=== PATIENT | female | born 1965 | race Caucasian/White ===

== ENCOUNTER 2020-10-12 17:41 | Emergency (ER) | payer MEDICARE, MEDICAID, SELFPAY ==
--- NOTE | ~2020-10-12 | XR_ITS ---
EXAMINATION: XR ANKLE, LEFT CLINICAL INFORMATION: Rule out fracture COMPARISON: None TECHNIQUE: AP, lateral, and mortise views of the left ankle. FINDINGS: Soft tissue swelling about the ankle more so laterally. There is an obliquely aerated fracture through the distal fibula extending at the level of the ankle mortise. I do not appreciate any significant widening to the ankle mortise or to the interosseous space between the tibia and fibula. No additional fracture seen. XR/XR ankle LT 2V IMPRESSION: Obliquely oriented lateral fibular fracture minimally displaced.
[2020-10-12 17:54] VITALS: BP 165/87; PULSE 100; RESP 15; TEMP 37.9; BMI 31.8
[2020-10-12 17:59] VITALS: BP 113/72; PULSE 107; RESP 18; TEMP 36.6; O2SAT 94
--- NOTE | 2020-10-12 21:05 | ED.LOWEXIN ---
HPI - Extremity Injury (Lower) General Chief Complaint: Extremity Injury, Lower Stated Complaint: lt ankle pain/swelling - s/p fall Time Seen by Provider: 10/12/20 20:56 Source: patient Mode of arrival: wheelchair Limitations: no limitations History of Present Illness HPI Narrative: Patient comes to the ER c/o L ankle pain, Patient states that Earlier today, patient missed a step, sprained her ankle, and since then she has not been able to bear weight due to pain. Patient has not taking any medication for pain control. The lateral aspect of the ankle is swollen. Patient denies hitting her head, no loss of consciousness, not on any blood thinners Related Data Allergies Allergy/AdvReac Type Severity Reaction Status Date / Time No Known Allergies Allergy Verified 10/12/20 21:02 Review of Systems Review of Systems: Constitutional : No Weight loss, No Fever, No Chills, No Night Sweats, No Fatigue, No Malaise ENT/Mouth : No Hearing loss, No Ear Pain, No Nasal Congestion, No Sinus Pain, No Hoarseness, No sore throat, No Rhinorrhea, No Swallowing Difficulty Eyes: No Eye Pain, No Swelling, No Redness, No Foreign Body, No Discharge, No Vision Changes Cardiovascular : No Chest Pain, No SOB, No Dyspnea on Exertion, No Orthopnea, No Edema, No Palpitations Respiratory : No Cough, No Sputum, No Wheezing, No Smoke Exposure, No Dyspnea Gastrointestinal : No Nausea, No Vomiting, No Diarrhea, No Constipation, No abdominal Pain, No Hematochezia, No Melena Genitourinary : no irregular bleeding, No Dysuria, No Urinary Frequency, No Hematuria, No Urinary Incontinence, No Urgency, No Flank Pain, No Urinary Flow Changes, No Hesitancy Musculoskeletal : Complaining of left ankle pain Skin : No Skin Lesions, No rash Neuro : No Weakness, No Numbness, No Paresthesias, No Loss of Consciousness, No Dizziness, No Headache Psych : No Anxiety/Panic, No Depression, No SI/HI/AH/VH, No Social Issues, Heme/Lymph: No Bruising, No Bleeding,No Lymphadenopathy Endocrine : No Polyuria, No Polydipsia, No Temperature Intolerance PMFSH Past Medical History Medical History ETOH abuse Multiple sclerosis Social History Social History Advance Directives: No Advance Directives Information Provided: Yes Physical Exam Vital Signs: Vital Signs: Last Vital Signs Temp 97.8 F 10/12/20 17:59 Pulse 107 H 10/12/20 17:59 Resp 18 10/12/20 17:59 BP 113/72 10/12/20 17:59 Pulse Ox 94 10/12/20 17:59 Body Mass Index 31.8 Appearance: Alert. Oriented X3. No acute distress. Eyes: Pupils equal, round and reactive to light. ENT: Pharynx normal. Neck: Normal inspection. Neck supple. No lymph nodes noted. No crepitus CVS: Normal heart rate and rhythm. Pulses normal. Normal S1 and S2 Respiratory: No respiratory distress. Breath sounds normal. No Wheezing. No rales Abdomen: Soft and nontender. No rigidity. No distention. good BS x4 Skin: Skin warm and dry. Ecchymosis in lateral malleolus, pain to palpation over lateral malleolus, unable to bear weight Extremities: No lower extremity edema. No lower extremity edema. No Lacerations. No Rash Neuro: Oriented X 3. No motor deficit. No sensory deficit. Moving all extermities. No slurred speech. Course Course Course Narrative: I discussed with the patient that she does have a fibular fracture. Crutches are not an option for the patient, patient has multiple sclerosis and chronic weakness on the left-hand. She is willing to try off a. A posterior splint will be placed, patient instructed to follow-up with orthopedics at this time, reduction of the minimally displaced fibula is not indicate MDM - Extremity Injury (Lower) Imaging Data Left ankle x-ray: Radiologist's impression: FINDINGS: Soft tissue swelling about the ankle more so laterally. There is an obliquely aerated fracture through the distal fibula extending at the level of the ankle mortise. I do not appreciate any significant widening to the ankle mortise or to the interosseous space between the tibia and fibula. No additional fracture seen. XR/XR ankle LT 2V IMPRESSION: Obliquely oriented lateral fibular fracture minimally displaced.
--- NOTE | 2020-10-12 21:33 | PC.NURSE ---
assisted with patient onto bedpan, left ankle not splinted at the time. pt has good motor, color, temperature and pedal pulse on left. pt has abrasion to right knee, reports minor pain to right knee. able to support weight on right leg while lifting for bed nicholas. pt requested walker from to go home with. pt has a hx of MS.
--- NOTE | 2020-10-12 21:35 | PC.NURSE ---
Pt aaox4, resting on stretcher in NAD, breathing with ease on RA. Pt reports splint to L ankle has totally taken away the pain. Pt with +CMS to distal LLE. Pt denies all other complaints/concerns at this time. pt requesting DC. Pt stretcher in low locked position, rails raised. Family at bedside.
[2020-10-12 21:39] VITALS: BP 127/84; PULSE 99; RESP 18; TEMP 36.5; O2SAT 93
[2020-10-12] MEDS: Acetaminophen 325 MG TABLET 650 MG PO (21:49)
--- NOTE | 2020-10-12 22:08 | PC.NURSE ---
pt unable to support weight while using assist of walker. spoke with patient and encouraged her to stay for case management.
[2020-10-12 23:03] LABS: COVID-19 Test Negative (Negative); IDNOW Serial# 08D9AD1C
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
[2020-10-12 23:36] VITALS: BP 160/99; PULSE 92; RESP 20; O2SAT 94
[2020-10-12] MEDS: traZODone HCL 50 MG TABLET PO (23:54)
[2020-10-12] MEDS: Perphenazine 8 MG TABLET PO (23:54)
[2020-10-12] MEDS: ondansetron HCL 4 MG/2 ML VIAL IVPUSH (23:54)
[2020-10-13 06:11] VITALS: BP 127/79; PULSE 84; RESP 20; O2SAT 95
[2020-10-13] MEDS: Omeprazole 20 MG CAPSULE.DR PO (06:11)
[2020-10-13 07:38] VITALS: BP 130/84; PULSE 91; RESP 18; TEMP 37.4; O2SAT 94
--- NOTE | 2020-10-13 07:42 | PC.NURSE ---
REPORT TAKEN FROM JASON VELAZQUEZ. PATIENT RESTING ON STRETCHER. AWARE OF PLAN FOR PHYSICAL THERAPY EVAL THIS MORNING AND THEN STR PLACEMENT. PATIENT REPORTS TO RN THAT SHE FEELS SICK TO HER STOMACH . STATES SHE FEELS SHE NEEDS NICOTINE REPLACEMENT, ASKING FOR GUM, SMOKES 2 PACKS/DAY. MD AWARE. WILL MEDICATED WHEN ORDERED.
[2020-10-13] MEDS: Nicotine Polacrilex 2 MG GUM BUCCAL (07:50)
[2020-10-13] MEDS: Perphenazine 8 MG TABLET PO (08:06)
[2020-10-13] MEDS: FLUoxetine HCl 20 MG CAPSULE PO (08:06)
[2020-10-13] MEDS: Fluticasone/Vilanterol 200/25 BLST.W.DEV 1 PUFF INHALE (08:07)
[2020-10-13 09:22] VITALS: BP 130/84; PULSE 91; O2SAT 94
[2020-10-13 09:52] VITALS: BP 130/80; PULSE 79; RESP 18; TEMP 36.7; O2SAT 94
--- NOTE | 2020-10-13 10:06 | MHC.CM.PN ---
Addendum entered by Edita Mcclendon 10/13/20 13:54: MSG RECEIVED FROM [facility], THEY WOULD LIKE TRANSPORT SET UP FOR 1500 HOURS. Addendum entered by Edita Mcclendon 10/13/20 13:17: [facility] [place] WAS ABLE TO ACCEPT PT TODAY. PT WILL BE TRANSPORTED VIA [facility] Original Note: CM MET WITH PT, HER BROTHER AND [facility]YS[facility] THERAPIST WERE ALSO PRESENT. PER PHYSICAL THERAPIST, PT WOULD BE APPROPRIATE FOR ACUTE REHAB SINCE SHE WAS COMPLETELY INDEPENDENT PRIOR TO INJURY. PTS BROTHER ASKED ABOUT HOME CARE DUE TO COVID 19 CONCERNS HOWEVER AFTER FURTHER DISCUSSION HE INDICATED HE DID NOT BELIEVES THIS WOULD BE A GOOD PLAN. BOTH PT AND HER BROTHER/HCP ARE AGREEABLE TO ACUTE REHAB AND HAVE REQUESTED A REFERRAL TO [facility]. THEY WOULD LIKE TO SEND REFERRALS TO [facility]OTH [facility] AND [place] IF [facility] IS UNABLE TO OFFER A BED. REFERRAL HAS BEEN SENT. CURRENT DC PLAN IS ACUTE REHAB. [facility] IS PREFERRED FACILITY.
[2020-10-13 13:19] VITALS: BP 138/76; PULSE 82; RESP 18; O2SAT 94
--- NOTE | 2020-10-13 13:22 | PC.NURSE ---
Pt calm and cooperative. Plan for STR. Pt up to date on plan.
--- NOTE | 2020-10-13 14:00 | MHC.CM.PN ---
Pt will transfer to [facility] [place] today at 1500 hours via [facility]. Pt aware. pts brother, Willem ([phone]) notified via t/c. He reports he will bring pt some clothes prior to her departure from [facility]. He also confirms he will bring the pts MS injection med directly to [facility] as requested by facility.
--- NOTE | 2020-10-13 15:31 | PC.NURSE ---
Report given to nurse at [facility]. Pt sent by ambulance to that fecility for rehab.
== END 2020-10-13 15:32 | disposition skilled nursing facility (03) ==
PROVIDERS: Emergency Provider Emergency Medicine; PCP Family Medicine
DX: S93.402A Sprain of unspecified ligament of left ankle, initial encounter (principal); M25.572 Pain in left ankle and joints of left foot; M25.472 Effusion, left ankle; W10.9XXA Fall (on) (from) unspecified stairs and steps, initial encounter; Y93.9 Activity, unspecified; Y92.9 Unspecified place or not applicable; Y99.9 Unspecified external cause status; Z20.822 Contact with and (suspected) exposure to COVID-19
CPT/HCPCS: 29515; 36415; 73600; 87635; 96372; 96374; 97162; 99284; J2405

== ENCOUNTER 2020-10-26 08:03 | Outpatient (REF) | payer OTHER, MEDICAID, SELFPAY ==
--- NOTE | ~2020-10-26 | XR_ITS ---
EXAMINATION: XR ANKLE, LEFT CLINICAL INFORMATION: Pain. History lateral fibular fracture. Follow-up. COMPARISON: Left ankle radiographs 10/12/2020 TECHNIQUE: AP, lateral, and mortise views of the left ankle. FINDINGS: There is a known oblique fracture distal fibular with mild lateral displacement distal fracture fragment. There is borderline asymmetry of the ankle mortise, perhaps slightly wider on the medial side, not appreciated on prior study 10/12/2020. No new fracture or destructive process. The subtalar joint is unremarkable. XR/XR ankle LT min 3V IMPRESSION: Known oblique fracture distal left fibular. Borderline asymmetry ankle mortise, slightly wider medial side since prior exam 10/12/2020.
== END 2020-10-26 08:04 | disposition home or self-care (01) ==
LOC: HO.HOSX 08:03
PROVIDERS: Visit Provider Physician Assistant
DX: Z01.818 Encounter for other preprocedural examination (principal); S82.832A Other fracture of upper and lower end of left fibula, initial encounter for closed fracture; M25.572 Pain in left ankle and joints of left foot
CPT/HCPCS: 73610; 99202

== ENCOUNTER 2020-10-31 10:15 | Day surgery (SDC) | payer MEDICARE, MEDICAID, SELFPAY ==
--- NOTE | 2020-10-30 09:01 | HO.ANESPROP2 ---
Documented by User: Diane Faria 10/30/20 09:02 HPI - Anesthesia Eval Consult details Narrative: 54yo F for Left Ankle Fracture ORIF ? ETOH PMFSH Active Problems Active Problems: All Active Problems (Updated 10/26/20 @ 13:02 by Mary Arroyo PA-C) Fracture of distal end of left fibula (Acute) Past Medical History Medical History Asthma with COPD ETOH abuse Multiple sclerosis Seizure Smoker Surgical History Surgical History (Updated 10/31/20 @ 13:37 by Syeda Ponce) H/O brain tumor Social History Social History Smoking Status: Current every day smoker Packs Per Day: 1 Cigarettes Per Day: 20.0 Years Smoked: 10 Smoked in Last 30 Days: Yes Are you DNR?: No Advance Directives: No Advance Directives Information Provided: Yes Meds Allergies Allergy/AdvReac Type Severity Reaction Status Date / Time latex Allergy Rash Verified 10/31/20 10:28 nickel Allergy Rash Verified 10/31/20 10:28 phenytoin [From Dilantin] Allergy Rash Verified 10/31/20 10:28 Home Medications Medication Instructions Recorded Confirmed Last Taken Type albuterol sulfate [ProAir HFA] 2 puff INHALATION Q4H PRN 10/12/20 10/12/20 Unknown History budesonide-formoterol [Symbicort] 2 puff INHALATION BID 10/12/20 10/12/20 10/12/20 History fluoxetine 1 cap PO QAM 10/12/20 10/12/20 10/12/20 History glatiramer [Glatopa] 20 mg SUBCUT DAILY 10/12/20 10/12/20 10/31/20 History omeprazole 1 cap PO DAILY 10/12/20 10/12/20 10/31/20 History perphenazine 1 tab PO BID 10/12/20 10/12/20 10/31/20 History trazodone 1 tab PO BEDTIME 10/12/20 10/12/20 Unknown History enoxaparin TOPICAL 10/31/20 10/29/20 History Exam Exam Date and Time: October 30, 2020900 Assessment and Plan Assessment Anesthesia Assessment: Chart Reviewed Documented by User: Syeda Ponce 10/31/20 13:37 [facility] Past Medical History Medical History Asthma with COPD ETOH abuse Multiple sclerosis Seizure Smoker Family History Family history of problems with anesthesia: No Surgical History Surgical History (Updated 10/31/20 @ 13:37 by Syeda Ponce) H/O brain tumor History of Problems with Anesthesia: No Social History Social History Smoking Status: Current every day smoker Packs Per Day: 1 Cigarettes Per Day: 20.0 Years Smoked: 10 Smoked in Last 30 Days: Yes Are you DNR?: No Advance Directives: No Advance Directives Information Provided: Yes Meds Allergies Allergy/AdvReac Type Severity Reaction Status Date / Time latex Allergy Rash Verified 10/31/20 10:28 nickel Allergy Rash Verified 10/31/20 10:28 phenytoin [From Dilantin] Allergy Rash Verified 10/31/20 10:28 Home Medications Medication Instructions Recorded Confirmed Last Taken Type albuterol sulfate [ProAir HFA] 2 puff INHALATION Q4H PRN 10/12/20 10/12/20 Unknown History budesonide-formoterol [Symbicort] 2 puff INHALATION BID 10/12/20 10/12/20 10/12/20 History fluoxetine 1 cap PO QAM 10/12/20 10/12/20 10/12/20 History glatiramer [Glatopa] 20 mg SUBCUT DAILY 10/12/20 10/12/20 10/31/20 History omeprazole 1 cap PO DAILY 10/12/20 10/12/20 10/31/20 History perphenazine 1 tab PO BID 10/12/20 10/12/20 10/31/20 History trazodone 1 tab PO BEDTIME 10/12/20 10/12/20 Unknown History enoxaparin TOPICAL 10/31/20 10/29/20 History Exam Height,Weight and Vital Signs: Vital Signs Temp Pulse Resp BP Pulse Ox 10/31/20 10:53 97.3 F 68 16 107/65 96 Airway Mallampati Class: III TM Dist: >3cm Neck ROM: Full Heart: RRR Lungs: CTAB Assessment and Plan Assessment Anesthesia Assessment: Anesthesia Plan Discussed and Chart Reviewed Final Anesthetic Review NPO: Yes ASA Class: II Final Preanesthetic Review: No Changes in Pt Med Stat, Meds/Allgs Chart Reviewed, Consent Obtained/Reviewed and Anes Risks/Benef Reviewed Patient Risk: Intermediate Procedure Risk: Low Assessment/Block/Sedation in SS: Assess/Block/Sedation-SS Anesthetic Plan Anesthetic Plan: GA Disposition: Standard PACU
--- NOTE | ~2020-10-31 | FL_ITS ---
EXAMINATION: XR FLUOROSCOPY WITH IMAGES CLINICAL INFORMATION: Left ankle fracture COMPARISON: Previous x-rays of the left ankle September 2020 TECHNIQUE: Fluoroscopy performed by Dr. Felton Sheth. Fluoroscopy time: 15 seconds DAP: [id number] Images: 3 FINDINGS: Fluoroscopy guidance was provided for plate and screws transfixing the left distal fibular shaft fracture. There is anatomic alignment. FL/FL guidance in OR IMPRESSION: Fluoroscopic for ORIF of left distal fibular shaft fracture.
[2020-10-31 10:29] VITALS: BMI 31.8
[2020-10-31 10:53] VITALS: BP 107/65; PULSE 68; RESP 16; TEMP 36.3; O2SAT 96
[2020-10-31] MEDS: Lactated Ringers 1,000 ML 100 ML IVCONT (11:03)
--- NOTE | 2020-10-31 12:15 | MHC.SHP ---
Pre-Procedural Eval Section A The patient is an INPATIENT: No Changes since office visit: Yes Patient answered all questions; No Cold of Flu in the past 2 weeks, No New Medical Problems and No Changes in Medication The History & Physical has been completed within 30 days and I have reviewed it.: Yes Section B Chief Complaint: fx of shaft of left fibula Allergies: Allergies Allergy/AdvReac Type Severity Reaction Status Date / Time latex Allergy Rash Verified 10/31/20 10:28 nickel Allergy Rash Verified 10/31/20 10:28 phenytoin [From Dilantin] Allergy Rash Verified 10/31/20 10:28 Plan I have reviewed the history and physical and performed a pertinent physical examination on my patient. No changes have occurred unless specified.
--- NOTE | 2020-10-31 13:52 | PM.OP ---
Brief Operative Note Date of Service: 10/31/20 Pre-op diagnosis: left lateral malleolus fracture Post-op diagnosis: same Procedure: ORIF left lateral malleolus Implants: [place] locking plate with 1 2.7 lag screw Surgeon: Felton Sheth MD Anesthesia: GETA and regional Was an Grounds/Maintenance Specialist used for this Procedure?: Yes Estimated blood loss (mL): 20 Tourniquet time (min): 30 IV fluids (mL): 800 Pathology: none sent Condition: stable Disposition: PACU
[2020-10-31 13:55] VITALS: BP 115/63; PULSE 96; RESP 16; TEMP 36.6; O2SAT 95
--- NOTE | 2020-10-31 13:57 | W.PM.OPN ---
Operative Note Operative Note Date of Service: 10/31/20 Narrative: Pre-op diagnosis: left lateral malleolus fracture Post-op diagnosis: same Procedure: ORIF left lateral malleolus Implants: [place] locking plate with 1 2.7 lag screw Surgeon: Felton Sheth MD Anesthesia: GETA and regional Was an Ammonium Sulfate Operator used for this Procedure?: Yes Estimated blood loss (mL): 20 Tourniquet time (min): 30 IV fluids (mL): 800 Pathology: none sent Condition: stable Disposition: PACU Procedure in detail:Patient was brought to the operating room and placed supine on the surgical table. She was prepped and draped in standard sterile fashion and a time out was called to indentify proper site, proper procedure and IV antibiotics per weight were administered. I began by making a posterolateral incision over the distal fibula. Care was taken to avoid any superficial nerves proximally and dissection was taken with the Littler's to the fracture site. The oblique Riddle B fracture was identified and the fracture edges were cleaned with curette irrigation and sharp dissection. I then used lobster claw tenaculum to reduce the fracture. Once this was done I placed 1 PA leg 2.7 lag screw using standard AO technique. Once this done I placed 10 hole Jennifer lateral locking plate. Five distal locking screws were placed and 4 proximal non locking screws were placed. Biplanar fluoroscopy was used to confirm reduction and hardware position and the mortise was assessed and found to be stable. Once I was satisfied with fracture alignment and hardware position irrigated copiously. A layered closure was performed with samantha on the skin and patient was placed into well-padded posterior splint extubated brought to recovery room in stable condition there were no known complications.
[2020-10-31 14:00] VITALS: BP 124/79; PULSE 69; RESP 16; O2SAT 95
[2020-10-31 14:05] VITALS: BP 140/83; PULSE 89; RESP 16; O2SAT 98
[2020-10-31 14:08] VITALS: BP 148/82; PULSE 89; RESP 16; O2SAT 97
[2020-10-31 14:23] VITALS: BP 146/74; PULSE 77; RESP 17; O2SAT 95
== END 2020-10-31 14:50 | disposition home or self-care (01) ==
PROVIDERS: PCP Family Medicine; Visit Provider Orthopaedic Surgery
PROC: (CPT 27792; principal; 2020-10-31 12:10)
DX: S82.62XA Displaced fracture of lateral malleolus of left fibula, initial encounter for closed fracture (principal); X50.1XXA Overexertion from prolonged static or awkward postures, initial encounter; G35 Multiple sclerosis; G81.94 Hemiplegia, unspecified affecting left nondominant side; Z86.011 Personal history of benign neoplasm of the brain; J44.9 Chronic obstructive pulmonary disease, unspecified; Y93.01 Activity, walking, marching and hiking; Y92.9 Unspecified place or not applicable; Y99.8 Other external cause status; Z79.899 Other long term (current) drug therapy; F17.210 Nicotine dependence, cigarettes, uncomplicated; F10.10 Alcohol abuse, uncomplicated; Z91.040 Latex allergy status; Z88.8 Allergy status to other drugs, medicaments and biological substances
CPT/HCPCS: 27792; C1713; J0690; J1100; J2250; J2405; J3010

== ENCOUNTER 2020-11-10 07:56 | Outpatient (REF) | payer MEDICARE, MEDICAID, SELFPAY ==
--- NOTE | ~2020-11-10 | XR_ITS ---
EXAMINATION: XR ANKLE, LEFT CLINICAL INFORMATION: Left ankle pain. COMPARISON: Most recent left ankle radiograph dated 10/26/2020 TECHNIQUE: AP, lateral, and mortise views of the left ankle. FINDINGS: Interval placement of a lateral stabilization plate and fixation screws across the distal fibular fracture with overlying surgical samantha. No acute hardware or osseous fracture. The previously seen fibular fracture is now in anatomic alignment. No lytic or blastic osseous lesion. No abnormal soft tissue calcification. Overlying posterolateral splint. XR/XR ankle LT min 3V IMPRESSION: Interval placement of an ORIF across the distal fibular fracture which now appears in anatomic alignment. No evidence of hardware complication.
--- NOTE | ~2020-11-10 | XR_ITS ---
EXAMINATION: XR ANKLE, LEFT CLINICAL INFORMATION: Fracture follow-up. COMPARISON: Radiographs left ankle 11/10/2020, 10/26/2020. TECHNIQUE: AP, lateral, and mortise views of the left ankle. FINDINGS: Patient is status post reduction with distal lateral fibula compression plate and screws. There is overlying fiberglass cast. Fracture fragments are in anatomic alignment. Hardware is intact. Ankle mortise is symmetric. There is no destructive process or osteolysis. Skin samantha have been removed since prior exam. XR/XR ankle LT min 3V IMPRESSION: Status post reduction distal fibular fracture. Hardware intact. Anatomic alignment. No osteolysis.
== END 2020-11-10 07:57 | disposition home or self-care (01) ==
LOC: HO.HOSX 07:56
PROVIDERS: Visit Provider Physician Assistant
DX: M25.572 Pain in left ankle and joints of left foot (principal); S82.832D Other fracture of upper and lower end of left fibula, subsequent encounter for closed fracture with routine healing
CPT/HCPCS: 29405; 73610; 99212

== ENCOUNTER → 2020-12-11 10:36 | Outpatient (BNVA) | payer MEDICARE, MEDICAID, SELFPAY | PROVIDERS: PCP Internal Medicine; Visit Provider Orthopaedic Surgery | DX: S82.409D Unspecified fracture of shaft of unspecified fibula, subsequent encounter for closed fracture with routine healing (principal) | CPT/HCPCS: 73610; 99212 ==

== ENCOUNTER 2021-01-25 10:41 | Outpatient (REF) | payer MEDICARE, MEDICAID, SELFPAY ==
--- NOTE | ~2021-01-25 | XR_ITS ---
EXAMINATION: XR ANKLE, LEFT CLINICAL INFORMATION: Follow-up fracture COMPARISON: Multiple prior studies. Most recent exam Left ankle December 11, 2020 TECHNIQUE: AP, lateral, and mortise views of the left ankle. FINDINGS: Orthopedic plate and screw present in the lateral malleolus. No hardware failure. Fracture is healed. Fracture line is not visible. Alignment is anatomic. Ankle mortise is congruent. XR/XR ankle LT min 3V IMPRESSION: Status post ORIF lateral malleolar fracture. Fracture is healed.
== END 2021-01-25 10:42 | disposition home or self-care (01) ==
LOC: HO.HOSX 10:41
PROVIDERS: Visit Provider Orthopaedic Surgery
DX: S82.409D Unspecified fracture of shaft of unspecified fibula, subsequent encounter for closed fracture with routine healing (principal)
CPT/HCPCS: 73610; 99212

== ENCOUNTER 2021-10-25 13:22 | Outpatient (REF) | payer MEDICARE, MEDICAID, SELFPAY ==
--- NOTE | ~2021-10-25 | XR_ITS ---
EXAMINATION: XR ANKLE, LEFT CLINICAL INFORMATION: Pain. COMPARISON: Prior radiographs, most recently 01/25/2021. TECHNIQUE: AP, lateral, and mortise views of the left ankle. FINDINGS: Bony alignment and mineralization are normal. The ankle mortise is intact. There is no fracture, dislocation or left ankle joint effusion. There is an intact orthopedic plate and fixator screws applied to the distal left fibula. Boehler's angle is normal. There is no calcaneal spur. The soft tissue planes are unremarkable, focal swelling, gas or foreign body. XR/XR ankle LT min 3V IMPRESSION: Unremarkable left ankle. There are stable postoperative changes of the distal left fibula.
--- NOTE | ~2021-10-25 | XR_ITS ---
EXAMINATION: XR PELVIS CLINICAL INFORMATION: Pain. COMPARISON: None TECHNIQUE: 2 AP views of the pelvis are submitted. FINDINGS: The bones and soft tissues are normal. No fracture. Sacroiliac and hip joints are normal. Pubic symphysis is normal. No abnormal soft tissue calcifications. XR/XR pelvis 1-2V IMPRESSION: Unremarkable pelvic radiographs.
== END 2021-10-25 13:23 | disposition home or self-care (01) ==
LOC: HO.HOSX 13:22
PROVIDERS: Visit Provider Orthopaedic Surgery
DX: S82.402A Unspecified fracture of shaft of left fibula, initial encounter for closed fracture (principal); Z98.890 Other specified postprocedural states
CPT/HCPCS: 72170; 73610; 99212

== ENCOUNTER 2022-05-05 00:37 | Emergency (ER) | payer MEDICARE, MEDICAID, SELFPAY ==
--- NOTE | ~2022-05-05 | XR_ITS ---
EXAMINATION: XR SHOULDER, LEFT XR HUMERUS, LEFT CLINICAL INFORMATION: Left arm and shoulder pain COMPARISON: None TECHNIQUE: 3 views of left shoulder. 2 views of the left humerus. FINDINGS: Glenohumeral alignment is anatomic. There is a minimally displaced fracture of the greater tuberosity of the proximal humerus and essentially nondisplaced fracture of the humeral neck. Acromioclavicular joint is intact. Remainder of the humerus appears unremarkable on the lateral view though is not adequately assessed on the AP humeral radiograph due to overlapping structures. XR/XR shoulder LT min 2V IMPRESSION: Minimally displaced fracture of the greater tuberosity of the proximal humerus and essentially nondisplaced fracture of the humeral neck.
--- NOTE | ~2022-05-05 | XR_ITS ---
EXAMINATION: XR SHOULDER, LEFT XR HUMERUS, LEFT CLINICAL INFORMATION: Left arm and shoulder pain COMPARISON: None TECHNIQUE: 3 views of left shoulder. 2 views of the left humerus. FINDINGS: Glenohumeral alignment is anatomic. There is a minimally displaced fracture of the greater tuberosity of the proximal humerus and essentially nondisplaced fracture of the humeral neck. Acromioclavicular joint is intact. Remainder of the humerus appears unremarkable on the lateral view though is not adequately assessed on the AP humeral radiograph due to overlapping structures. XR/XR humerus LT IMPRESSION: Minimally displaced fracture of the greater tuberosity of the proximal humerus and essentially nondisplaced fracture of the humeral neck.
[2022-05-05 01:18] VITALS: BP 142/94; PULSE 79; RESP 16; TEMP 36.4; O2SAT 96; BMI 31.1
[2022-05-05 03:53] VITALS: BP 171/102; PULSE 84; RESP 18; TEMP 36.6; O2SAT 95
--- NOTE | 2022-05-05 04:15 | ED.EXTPRO ---
HPI - Extremity Problem General Chief complaint: Extremity Injury, Upper Stated complaint: fall Time Seen by Provider: 05/05/22 04:07 Source: patient Mode of arrival: ambulatory Limitations: no limitations History of Present Illness HPI Narrative: Patient comes emergency room complaining of left shoulder pain after a fall. Patient states that she was wearing socks walking to the kitchen trying to get a bowl cheerios. Before patient got to her cereal, patient slipped. Patient states that sometimes she has lower extremity weakness randomly due to multiple sclerosis. Patient states that she did not hit her head and did not lose consciousness. Patient complaining of localized pain in the shoulder. Related Data Home Medications Medication Instructions Recorded Confirmed albuterol sulfate 90 mcg/actuation 2 puff inhalation Q4H PRN wheezing 10/12/20 10/12/20 aerosol inhaler (ProAir HFA) budesonide-formoterol HFA 160 2 puff inhalation BID 10/12/20 10/12/20 mcg-4.5 mcg/actuation aerosol inhaler (Symbicort) fluoxetine 20 mg capsule 1 cap PO QAM 10/12/20 10/12/20 glatiramer 20 mg/mL subcutaneous 20 mg subcut DAILY 10/12/20 10/12/20 syringe (Glatopa) omeprazole 20 mg capsule,delayed 1 cap PO DAILY 10/12/20 10/12/20 release perphenazine 8 mg tablet 1 tab PO BID 10/12/20 10/12/20 trazodone 50 mg tablet 1 tab PO BEDTIME 10/12/20 10/12/20 trazodone 100 mg tablet 100 mg PO BEDTIME 11/10/20 Previous Rx's Medication Instructions Recorded ibuprofen 600 mg tablet 600 mg PO TID PRN pain #20 tabs 05/05/22 tramadol 50 mg tablet 50 mg PO Q8H PRN pain #7 tabs 05/05/22 Allergies Allergy/AdvReac Type Severity Reaction Status Date / Time latex Allergy Rash Verified 10/25/21 14:18 nickel Allergy Rash Verified 10/25/21 14:18 phenytoin [From Dilantin] Allergy Rash Verified 10/25/21 14:18 Review of Systems Review of Systems: Constitutional : No Weight loss, No Fever, No Chills, No Night Sweats, No Fatigue, No Malaise ENT/Mouth : No Hearing loss, No Ear Pain, No Nasal Congestion, No Sinus Pain, No Hoarseness, No sore throat, No Rhinorrhea, No Swallowing Difficulty Eyes: No Eye Pain, No Swelling, No Redness, No Foreign Body, No Discharge, No Vision Changes Cardiovascular : No Chest Pain, No SOB, No Dyspnea on Exertion, No Orthopnea, No Edema, No Palpitations Respiratory : No Cough, No Sputum, No Wheezing, No Smoke Exposure, No Dyspnea Gastrointestinal : No Nausea, No Vomiting, No Diarrhea, No Constipation, No abdominal Pain, No Hematochezia, No Melena Genitourinary : no irregular bleeding, No Dysuria, No Urinary Frequency, No Hematuria, No Urinary Incontinence, No Urgency, No Flank Pain, No Urinary Flow Changes, No Hesitancy Musculoskeletal : Complaining of left shoulder pain, No Myalgias, No Joint Swelling Skin : No Skin Lesions, No rash Neuro : No Weakness, No Numbness, No Paresthesias, No Loss of Consciousness, No Dizziness, No Headache Psych : No Anxiety/Panic, No Depression, No SI/HI/AH/VH, No Social Issues, Heme/Lymph: No Bruising, No Bleeding,No Lymphadenopathy Endocrine : No Polyuria, No Polydipsia, No Temperature Intolerance PMF Past Medical History Medical History Asthma with COPD ETOH abuse Multiple sclerosis Seizure Smoker Surgical History H/O brain tumor Social History Social History Alcohol intake: never Cigarette Packs Per Day: 1 Cigarettes Per Day: 20.0 Years Smoked: 10 Advance Directives: No Advance Directives Information Provided: No Current occupation: right handed Physical Exam Vital Signs: Vital Signs: Last Vital Signs Temp 97.8 F 05/05/22 03:53 Pulse 84 05/05/22 03:53 Resp 18 05/05/22 03:53 BP 171/102 H 05/05/22 03:53 Pulse Ox 95 05/05/22 03:53 O2 Del Method 05/05/22 03:53 BMI result Body Mass Index 31.1 Const: Other: Appearance: Alert. Oriented X3. No acute distress. Eyes: Pupils equal, round and reactive to light. ENT: Pharynx normal. Neck: Normal inspection. Neck supple. No lymph nodes noted. No crepitus CVS: Normal heart rate and rhythm. Pulses normal. Normal S1 and S2 Respiratory: No respiratory distress. Breath sounds normal. No Wheezing. No rales Abdomen: Soft and nontender. No rigidity. No distention. Skin: Skin warm and dry. Normal skin color. Normal skin turgor. Extremities: No lower extremity edema. Pain to palpation in the lateral aspect of the left shoulder. Neuro: Oriented X 3. No motor deficit. No sensory deficit. Moving all extremities. No slurred speech. CN 2 through 12 grossly intact Psych: calm, cooperative, normal affect Course Course Course Narrative: I discussed the x-ray with the patient, patient has a minimally displaced fracture of the greater tuberosity of the proximal humerus and a nondisplaced fracture of the humeral neck. Patient was provided with a sling, given p.o. tramadol. Case Management was offered to the patient. Patient respectfully declined, states she has family at home who can help her. MDM - Extremity (Nontraumatic) Imaging Data Shoulder x-ray: Radiologist's impression: FINDINGS: Glenohumeral alignment is anatomic. There is a minimally displaced fracture of the greater tuberosity of the proximal humerus and essentially nondisplaced fracture of the humeral neck. Acromioclavicular joint is intact. Remainder of the humerus appears unremarkable on the lateral view though is not adequately assessed on the AP humeral radiograph due to overlapping structures.? XR/XR shoulder LT min 2V IMPRESSION: Minimally displaced fracture of the greater tuberosity of the proximal humerus and essentially nondisplaced fracture of the humeral neck. ? Discharge Plan Discharge Clinical Impression: Fracture of neck of left humerus Patient Disposition: Home, Self-Care Instructions: Proximal Humerus Fracture (ED) Additional Instructions: Please follow-up with your primary care physician tomorrow. If you have any worsening or new symptoms, please return to the emergency room or call 911 Prescriptions: New tramadol 50 mg tablet 50 mg PO Q8H PRN (Reason: pain) Qty: 7 0RF ibuprofen 600 mg tablet 600 mg PO TID PRN (Reason: pain) Qty: 20 0RF No Action omeprazole 20 mg capsule,delayed release(DR/EC) 1 cap PO DAILY albuterol sulfate [ProAir HFA] 90 mcg/actuation HFA aerosol inhaler 2 puff inhalation Q4H PRN (Reason: wheezing) perphenazine 8 mg tablet 1 tab PO BID fluoxetine 20 mg capsule 1 cap PO QAM budesonide-formoterol [Symbicort] 160-4.5 mcg/actuation HFA aerosol inhaler 2 puff inhalation BID glatiramer [Glatopa] 20 mg/mL syringe 20 mg subcut DAILY trazodone 50 mg tablet 1 tab PO BEDTIME trazodone 100 mg tablet 100 mg PO BEDTIME Referrals: Suzi Colunga PA-C [Physician Computer Graphic Artist] - 05/06/22 9:00 am
[2022-05-05] MEDS: traMADoL HCL 50 MG TABLET PO (04:22)
== END 2022-05-05 05:14 | disposition home or self-care (01) ==
PROVIDERS: Emergency Provider Emergency Medicine
DX: S42.302A Unspecified fracture of shaft of humerus, left arm, initial encounter for closed fracture (principal); W01.10XA Fall on same level from slipping, tripping and stumbling with subsequent striking against unspecified object, initial encounter; Y93.9 Activity, unspecified; Y92.000 Kitchen of unspecified non-institutional (private) residence as the place of occurrence of the external cause; Y99.9 Unspecified external cause status; Z79.899 Other long term (current) drug therapy; F17.210 Nicotine dependence, cigarettes, uncomplicated; Z71.6 Tobacco abuse counseling
CPT/HCPCS: 73030; 73060; 99284

== ENCOUNTER 2022-05-17 | Outpatient (REF) | payer MEDICARE, MEDICAID, SELFPAY ==
--- NOTE | ~2022-05-17 | XR_ITS ---
EXAMINATION: XR SHOULDER, LEFT CLINICAL INFORMATION: Fracture COMPARISON: Previous x-ray from earlier this month TECHNIQUE: 2 of the left shoulder. FINDINGS: There are left humeral neck and greater tuberosity minimally displaced fractures. Glenohumeral alignment is normal. The acromioclavicular joint is normal. Soft tissues are normal. XR/XR shoulder LT min 2V IMPRESSION: Minimally displaced left humeral neck and greater tuberosity fractures.
== END 2022-05-17 00:01 ==
LOC: HO.HOSX
PROVIDERS: Visit Provider Physician Assistant
DX: S42.302A Unspecified fracture of shaft of humerus, left arm, initial encounter for closed fracture (principal); S42.252A Displaced fracture of greater tuberosity of left humerus, initial encounter for closed fracture
CPT/HCPCS: 73030; 99202

== ENCOUNTER 2022-06-14 | Outpatient (REF) | payer MEDICARE, MEDICAID, SELFPAY ==
--- NOTE | ~2022-06-14 | XR_ITS ---
EXAMINATION: XR SHOULDER, LEFT CLINICAL INFORMATION: Pain in the shoulder COMPARISON: 05/17/2022 TECHNIQUE: Two views of the left shoulder. FINDINGS: There is a healing left humeral neck fracture. Alignment is unchanged from prior. There is callus formation with osseous bridging. Fracture line is not distinct at this time. The humeral joint is aligned. The acromioclavicular joint is intact. The visualized lung is clear. The visualized ribs are intact. XR/XR shoulder LT min 2V IMPRESSION: Healing left humeral neck fracture with unchanged alignment.
== END 2022-06-14 00:01 | disposition home or self-care (01) ==
LOC: HO.HOSX
PROVIDERS: Visit Provider Physician Assistant
DX: S42.302A Unspecified fracture of shaft of humerus, left arm, initial encounter for closed fracture (principal); S42.252A Displaced fracture of greater tuberosity of left humerus, initial encounter for closed fracture
CPT/HCPCS: 73030; 99212

== ENCOUNTER 2022-07-26 16:52 | Outpatient (REF) | payer MEDICARE, MEDICAID, SELFPAY ==
--- NOTE | ~2022-07-26 | XR_ITS ---
EXAMINATION: XR SHOULDER, LEFT CLINICAL INFORMATION: Pain. COMPARISON: Prior radiographs, most recently 06/14/2022. TECHNIQUE: AP neutral, scapula Y and axillary views of the left shoulder are submitted. FINDINGS: There is subluxation of the glenohumeral joint, without blanca dislocation. A mildly displaced, impacted and angulated fracture is redemonstrated of the left humeral neck, without change in alignment. There is good callus formation, with the fracture line poorly visualized. The acromioclavicular and coracoclavicular intervals are normal. No soft tissue calcification or foreign body is seen. There is no left pneumothorax. XR/XR shoulder LT min 2V IMPRESSION: 1. There is a healing fracture of the left humeral neck in stable alignment. The fracture line is now poorly visualized, with good callus formation. 2. There is subluxation of the left glenohumeral joint, without blanca dislocation.
== END 2022-07-26 16:53 | disposition home or self-care (01) ==
LOC: HO.HOSX 16:52
PROVIDERS: Visit Provider Physician Assistant
DX: S42.252A Displaced fracture of greater tuberosity of left humerus, initial encounter for closed fracture (principal)
CPT/HCPCS: 73030; 99212

== ENCOUNTER 2022-09-06 15:57 | Outpatient (REF) | payer MEDICARE, MEDICAID, SELFPAY ==
--- NOTE | ~2022-09-06 | XR_ITS ---
EXAMINATION: XR SHOULDER, LEFT CLINICAL INFORMATION: Pain COMPARISON: 07/30/2022 TECHNIQUE: Three views of the left shoulder. FINDINGS: Persistent subluxation of the glenohumeral joint. Stable alignment of minimally displaced fracture of the left humeral neck. Fracture line is not well seen. Soft tissues are unremarkable. XR/XR shoulder LT min 2V IMPRESSION: Healing fracture of the left proximal humerus in stable alignment.
== END 2022-09-06 15:58 | disposition home or self-care (01) ==
LOC: HO.HOSX 15:57
PROVIDERS: Visit Provider Physician Assistant
DX: S42.302D Unspecified fracture of shaft of humerus, left arm, subsequent encounter for fracture with routine healing (principal); S42.252D Displaced fracture of greater tuberosity of left humerus, subsequent encounter for fracture with routine healing; X58.XXXD Exposure to other specified factors, subsequent encounter
CPT/HCPCS: 73030; 99212

== ENCOUNTER 2022-09-19 14:00 | Outpatient (RCR) | payer MEDICARE, MEDICAID, SELFPAY ==
--- NOTE | 2022-07-08 15:05 | MHC.PT.EP ---
[facility] [place] Office [place] Office [place] Office [address] [phone] F: [phone] F: [phone] F: [phone] F: [phone] Physical Therapy Plan of Care Date of Evaluation: Date of Surgery: NA Diagnosis: S/P LEFT HUMERAL FRACTURE Assessment: KACEY IS A PLEASANT 56 Y.O. FEMALE WHO REPORTS THAT SHE SLIPPED AND FELL IN HER KITCHEN ON EARLY APRIL. SHE STATES THAT HER MS HAS BEEN WORSENING AND SHE HAS BEEN FALLING MORE FREQEUENTLY. PRIOR TO FALL SHE STATES THAT SHE WAS PERFORMING HER REGULAR TASKS AT HOME INCLUDING DRIVING. DUE TO NERVE DAMAGE FROM SURGERY IN THE DISTANT PAST SHE HAS LIMITED USE OF LEFT UE AND HAND. UPON EXAM IMPAIRMENTS INCLUDE DECREASED ABILITY TO RAISE ARM OVER HEAD, DECREAED ABILITY TO DRIVE, PERFORM LIFTING, REACHING, PUSHING AND PULLING. SHE REPORTS DECREASED PARTICIPATION IN HOMEMAKING AND SELF CARE TASKS AND DISRUPTED SLEEP. Frequency and Duration: The patient will be seen 2 X WEEK FOR 4 WEEKS Short Term Goals: INITIATE HEP AND PROMOTE SELF MANAGEMENT OF SYMPTOMS Longterm Goals: TO DEMONSTRATE 120 DEGREES OF SHOULDER ELEVATION TO HOLD AND CARRY FULL CUP OF LIQUID WHILE PREPARRING MEALS TO REPORT INDEPENDENCE WITH ADLs TO RETURN TO DRIVING WITHOUT RESTRICTION INDEPENDENT HEP Treatment Plan: Modalities to reduce pain, spasms and effusion. Manual therapy to restore motion and function. Therapeutic exercise to improve strength and flexibility. Neuromuscular re-education for posture and balance. Therapeutic activities to return to functional activities of daily living. Electronically signed by: YUNIER PRESTON PT, DPT Please sign and return to therapist. Thank you for your referral.
--- NOTE | 2022-10-07 15:38 | MHC.PT.DC ---
[facility] [place] Office [place] Office [place] Office [address] [facility] [phone] F: [phone] F: [phone] F: [phone] F: [phone] Physical Therapy Discharge Report Diagnosis: S/P LEFT HUMERAL FRACTURE Date of Surgery: DOI 05/05/22 Date of Evaluation: 07/08/22 Date of Discharge: 09/20/22 Treatments to Date: 7 Cancellations to Date: 0 No Shows to Date: 0 Discharge Status: Patient Elected to Stop Discharge Summary: Comfort has progressed well in therapy but still with increased L hand and arm tone which increases difficulty throughout exercises. Pt with minimal increase in discomfort with stretching. Requesting D/C due to a family member with an illness that drives her here. Reviewed HEP. Electronically signed by: Anna Vasques PT, DPT Please sign and return to therapist. Thank you for your referral.
== END 2022-10-07 15:39 | disposition home or self-care (01) ==
LOC: HO.PT 14:00
PROVIDERS: PCP Internal Medicine; Visit Provider Physician Assistant
DX: S42.252A Displaced fracture of greater tuberosity of left humerus, initial encounter for closed fracture (principal)
CPT/HCPCS: 97110; 97162